=== PATIENT | male | born 2000 | race Caucasian/White ===

== ENCOUNTER 2024-04-13 06:22 | Emergency (ER) | payer BC, SELFPAY ==
[2024-04-13] VITALS (25 sets, daily range): BP systolic 102–123; BP diastolic 58–86; PULSE 86–108; RESP 12–28; TEMP 35.7–37; O2SAT 94–100
--- NOTE | ~2024-04-13 | XR_ITS ---
XR chest 1V portable 04/13/2024 06:54 Indication: Abnormal EKG Procedure: AP portable chest Comparison: No prior studies for comparison. Findings: Shallow inspiration. No focal air space disease, pulmonary edema, pleural effusion or suspe cted pneumothorax. Impression: 1: No acute cardiopulmonary disease. Reviewed, dictated and finalized at location B. Impression: 1: No acute cardiopulmonary disease.
--- NOTE | 2024-04-13 06:27 | PC.NURSE ---
blood work taken down to lab
--- NOTE | 2024-04-13 06:47 | ECG_ITS ---
Test Date: 2024-04-13 06:30:35 Measurements Intervals Anita Rate: 95 P: 33 TX: 169 QRS: -37 QRSD: 97 T: 32 QT: 357 QTc: 450 Interpretive Statements SINUS RHYTHM LEFT AXIS DEVIATION PATTERN CONSISTENT WITH PULMONARY DISEASE BASELINE ARTIFACT- I, II, III, AVR, AVL, V1 BORDERLINE ECG No previous ECG available for comparison Electronically Signed On 04-13-2024 09:00:31 CDT by Deniz Kelley D.O.
--- NOTE | 2024-04-13 06:48 | ED.SYNCOPE ---
HPI - Syncope General Chief Complaint: Syncope <Demian Flores MD - Last Filed: 04/13/24 06:54> Stated Complaint: syncope <Demian Flores MD - Last Filed: 04/13/24 06:54> Time Seen by Provider: 04/13/24 06:33 <Demian Flores MD - Last Filed: 04/13/24 06:54> Source: patient <Demian Flores MD - Last Filed: 04/13/24 06:54> Mode of arrival: ambulatory <Demian Flores MD - Last Filed: 04/13/24 06:54> Limitations: no limitations <Demian Flores MD - Last Filed: 04/13/24 06:54> History of Present Illness HPI narrative: patient is a 23-year-old male with significant past medical history that presents today for syncopal episode. Patient was we got his morning and says that he was in bed and he sat up from bed and was very dizzy he says that he was very lightheaded and he still had been went to walk and he passed out when he passed out he pulled over and clothing on. His sugars were on arrival were the 270s. He is diabetic so his sugars this morning his current problem much higher. He did admit to eating a lot junk food last night before he went to bed. <Demian Flores MD - Last Filed: 04/13/24 06:54> MD complaint: loss of consciousness <Demian Flores MD - Last Filed: 04/13/24 06:54> Onset (ago): hour(s) <Demian Flores MD - Last Filed: 04/13/24 06:54> Prodromal symptoms: lightheaded <Demian Flores MD - Last Filed: 04/13/24 06:54> Witnessed: No <Demian Flores MD - Last Filed: 04/13/24 06:54> Context: at rest <Demian Flores MD - Last Filed: 04/13/24 06:54> Injuries sustained associated with event: none <Demian Flores MD - Last Filed: 04/13/24 06:54> Current symptoms: back to baseline <Demian Flores MD - Last Filed: 04/13/24 06:54> Treatments prior to arrival: none <Demian Flores MD - Last Filed: 04/13/24 06:54> Related Data Home Medications: Home Medications Medication Instructions Recorded Confirmed atorvastatin 20 mg tablet 20 mg PO DAILY 04/13/24 04/13/24 dextroamphetamine-amphetamine 30 30 mg PO DAILY 04/13/24 04/13/24 mg tablet glimepiride 2 mg tablet 2 mg PO DAILY 04/13/24 04/13/24 metformin 500 mg tablet,extended 500 mg PO BID 04/13/24 04/13/24 release 24 hr <Demian Flores MD - Last Filed: 04/13/24 06:54> Allergies/Adverse Reactions: Allergies Allergy/AdvReac Type Severity Reaction Status Date / Time amoxicillin AdvReac Rash Verified 09/20/19 07:44 <Demian Flores MD - Last Filed: 04/13/24 06:54> Review of Systems Review of Systems: All systems reviewed & are unremarkable except as noted in HPI and below <Demian Flores MD - Last Filed: 04/13/24 06:54> Constitutional: Constitutional: Reports as per HPI <Demian Flores MD - Last Filed: 04/13/24 06:54> Eyes: Eyes: Reports no additional eye complaints <Demian Flores MD - Last Filed: 04/13/24 06:54> ENT: Reports system reviewed and no additional complaints, except as documented <Demian Flores MD - Last Filed: 04/13/24 06:54> Cardiovascular: Cardiovascular: Reports no additional cardiovascular complaints <Demian Flores MD - Last Filed: 04/13/24 06:54> Respiratory: Respiratory: Reports no additional respiratory complaints <Demian Flores MD - Last Filed: 04/13/24 06:54> Gastrointestinal: Gastrointestinal: Reports no additional gastrointestinal complaints <Demian Flores MD - Last Filed: 04/13/24 06:54> Genitourinary: Genitourinary: Reports no additional male genitourinary complaints <Demian Flores MD - Last Filed: 04/13/24 06:54> Musculoskeletal: Musculoskeletal: Reports no additional musculoskeletal complaints <Demian Flores MD - Last Filed: 04/13/24 06:54> Integumentary/Breasts: Skin/Breast: Reports system reviewed and no additional complaints, except as docu <Demian Flores MD - Last Filed: 04/13/24 06:54> Neurologic: Reports system reviewed and no additional compla
[2024-04-13 06:53] LABS: Basophils Absolute Auto 0.03 K/mm3 (0.00-0.10); Basophils Percent Auto 0.3 % (0.0-1.0); Eosinophils Absolute Auto 0.06 K/mm3 (0.02-0.50); Eosinophils Percent Auto 0.6 % (1.0-6.0); Hemoglobin 17.1 g/dL (14.0-18.0); Immature Granulocyte Absolute 0.05 K/mm3 (0.00-0.00); Immature Granulocyte Percent A 0.5 % (0.0-0.0); Mean Corpuscular HGB Conc 34.2 g/dL (32-36); Mean Corpuscular Hemoglobin 28.8 pg (27.0-31.0); Mean Corpuscular Volume 84.2 fL (78.0-102.0); Mean Platelet Volume 11.6 fl (8.7-11.0); Monocytes Absolute Auto 0.61 K/mm3 (0.10-0.90); Neutrophils Percent Auto 52.6 % (50.0-70.0); Platelet Count Result 225 K/mm3 (150-420); Red Blood Count 5.94 M/mm3 (4.70-6.10); Red Cell Distribution Width 12.6 % (11.6-14.4); White Blood Count 10.3 K/mm3 (4.8-10.8)
--- NOTE | 2024-04-13 06:59 | PC.NURSE ---
pt told a urine sample was needed. pt unable to urinate at this time
[2024-04-13 07:04] LABS: Alanine Aminotransferase 45 U/L (16-63); Albumin Level 3.7 g/dL (3.4-5.0); Alkaline Phosphatase 61 U/L (46-116); Anion Gap 11 mmol/L (4-12); Aspartate Amino Transferase 25 U/L (15-37); Bilirubin,Total 0.9 mg/dL (0.00-1.00); Blood Urea Nitrogen 11 mg/dL (7-18); Calcium 8.9 mg/dL (8.5-10.1); Carbon Dioxide 27 mmol/L (21-32); Chloride 99 mmol/L (98-108); Estimated CRCL calculation 142 ml/min; Estimated Glomerular Filt Rate > 60; Glucose 320 mg/dL (70-99); Magnesium 1.5 mg/dL (1.8-2.4); Osmolality Calculated 295 mOsm/kg (285-295); Potassium 3.6 mmol/L (3.5-5.1); Sodium 137 mmol/L (136-145); Total Protein 7.5 g/dL (6.4-8.2)
[2024-04-13] MEDS: SODIUM CHLORIDE 0.9% IV 1,000 ML 999 ML IV CONT (07:14)
[2024-04-13] MEDS: MAGNESIUM OXIDE 400 MG TABLET PO (07:40)
[2024-04-13] MEDS: GLIMEPIRIDE 2 MG TABLET PO (07:40)
[2024-04-13] MEDS: metFORMIN HCL 500 MG TABLET PO (07:40)
[2024-04-13 08:17] LABS: Glucose Point of Care 264 mg/dl (65-105)
== END 2024-04-13 08:37 | disposition home or self-care (01) ==
PROVIDERS: Family Medicine; Emergency Provider Emergency Medicine; PCP Family Medicine
DX: I95.1 Orthostatic hypotension (principal); E86.0 Dehydration; E83.42 Hypomagnesemia; I10 Essential (primary) hypertension; Z79.899 Other long term (current) drug therapy; Z79.84 Long term (current) use of oral hypoglycemic drugs
CPT/HCPCS: 36415; 71045; 80053; 82948; 83735; 85025; 93005; 96360; 99284; A9270; J7030